=== PATIENT | male | born 2005 | race Two or more races ===

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

== ENCOUNTER 2024-09-20 09:16 | Inpatient (IN) | payer MEDICAID, OTHER ==
[~2024-09-20] VITALS: Ht 180.3 cm; Wt 76.0 kg
[2024-09-20 10:18] LABS: Basophils # (auto) 0 10 ^3/uL (0-0.2); Basophils % (auto) 0.3 % (0.0-2.0); Eosinophils # (auto) 0.1 10 ^3/uL (0-0.8); Eosinophils % (auto) 0.8 % (0.0-7.0); Hematocrit 47.8 % (41.0-53.0); Hemoglobin 16.2 g/dL (13.5-17.5); Lymphocytes # (auto) 1.5 10 ^3/uL (0.4-5.4); Lymphocytes % (auto) 22.8 % (10.0-50.0); Mean Corpuscular Hemoglobin 31.5 pg (28.0-32.0); Mean Corpuscular Hgb Conc. 33.9 g/dL (32.0-36.0); Mean Corpuscular Volume 92.9 fL (80.0-100.0); Monocytes # (auto) 0.5 10 ^3/uL (0-1.3); Monocytes % (auto) 7.3 % (0.0-12.0); Neutrophils # (auto) 4.5 10 ^3/uL (1.6-8.6); Neutrophils % (auto) 68.8 % (37.0-80.0); Nucleated Red Blood Cells % 0.1 %; Platelet Count (auto) 228 10^3/uL (140-450); Red Blood Cells 5.14 10^6/uL (4.5-5.90); Red Cell Distribution Width 13.7 % (11.8-14.3); White Blood Cell 6.5 10^3/uL (4.4-10.8)
[2024-09-20 10:21] LABS: Chloride 107 mmol/L (98-107); Potassium 3.6 mmol/L (3.5-5.1); Sodium 139 mmol/L (136-145)
[2024-09-20 10:22] LABS: Anion Gap 2 (5-15); Calcium 10.5 mg/dL (8.7-10.4); Carbon Dioxide 30 mmol/L (20-31)
[2024-09-20 10:27] LABS: Blood Urea Nitrogen 19 mg/dL (9-23); Glucose 94 mg/dL (74-106)
[2024-09-20 10:28] LABS: BUN/Creatinine Ratio 21.8 (10.0-20.0)
--- NOTE | 2024-09-20 11:11 | DVH ---
EXAM: CT HEAD WITHOUT CONTRAST HISTORY: syncope COMPARISON: None TECHNIQUE: Axial images of the head were obtained and reformatted in coronal and sagittal planes. All CT scans at this medical facility are performed using dose modulation techniques as appropriate t o a performed exam including the following: Automated exposure control was utilized; adjustment of th e MA and/or KV according to patient size; and use of iterative reconstruction technique. CT Dose: CTDI volume is 52.6 mGy. Dose-length product is 864 mGy*cm FINDINGS: There is no evidence of acute intracranial hemorrhage, mass, mass effect midline shift. There is no h ydrocephalus or extra-axial fluid collection. Grimes-white matter differentiation is maintained.. The visualized paranasal sinuses and mastoid air cells are clear. The calvarium is intact. IMPRESSION: 1. No acute intracranial process. HS:Y
--- NOTE | 2024-09-20 12:22 | ED.PDOC ---
History of Present Illness HPI Comments 19 y/o M presents s/p syncope, today. Patient endorses on having sudden syncopal episode after getting out of shower, this morning. Patient states on this being the 4th time it had occurred to him, this year. Patient denies any headache, weakness, nausea, vomiting, fever, chills, or other associated symptoms or modifiers at this time. Chief Complaint: Syncope Time Seen by MD: 10:00 Primary Care Provider: JOHN Reviewed Notes: Nurses Notes, Medications, Allergies Allergies: Coded Allergies: NO KNOWN ALLERGIES (Unverified , 03/08/16) Information Source: Patient Mode of Arrival: Ambulatory Severity: Moderate Timing: Hours Duration: Minutes Prehospital treatment: None Past Medical History PAST MEDICAL HISTORY: Denies Surgical History: Denies all surgeries Family History Family History: Unknown Social History Smoker: Non-Smoker Alcohol: Denies ETOH Use Drugs: Denies Drug Use Lives In: Home Constitutional: denies: chills, diaphoresis, fatigue, fever, malaise, sweats, weakness, others EENTM: denies: blurred vision, double vision, ear bleeding, ear discharge, ear drainage, ear pain, ear ringing, eye pain, eye redness, hearing loss, mouth pain, mouth swelling, nasal discharge, nose bleeding, nose congestion, nose pain, photophobia, tearing, throat pain, throat swelling, voice changes, others Respiratory: denies: cough, hemoptysis, orthopnea, SOB at rest, shortness of breath, SOB with excertion, stridor, wheezing, others Cardiovascular: reports: syncope; denies: chest pain, dizzy spells, diaphoresis, Dyspnea on exertion, edema, irregular heart beat, left arm pain, lightheadedness, palpitations, PND, others Gastrointestinal: denies: abdomen distended, abdominal pain, blood streaked bowels, constipated, diarrhea, dysphagia, difficulty swallowing, hematemesis, melena, nausea, poor appetite, poor fluid intake, rectal bleeding, rectal pain, vomiting, others Genitourinary: denies: burning, dysuria, flank pain, frequency, hematuria, incontinence, penile discharge, penile sore, pain, testicle pain, testicle swelling, urgency, others Neurological: denies: dizziness, fainting, headache, left sided numbness, left sided weakness, numbness, paresthesia, pre-existing deficit, right sided numbness, right sided weakness, seizure, speech problems, tingling, tremors, weakness, others Musculoskeletal: denies: back pain, gout, joint pain, joint swelling, muscle pain, muscle stiffness, neck pain, others Integumetry: denies: bruises, change in color, change in hair/nails, dryness, laceration, lesions, lumps, rash, wounds, others Allergic/Immunocompromised: denies: Difficulty Healing, Frequent Infections, Hives, Itching, others Hematologic/Lymphatic: denies: anemia, blood clots, easy bleeding, easy bruising, swollen glands, others Endocrine: denies: excessive hunger, excessive sweating, excessive thirst, excessive urination, flushing, intolerance to cold, intolerance to heat, unexplained weight gain, unexplained weight loss, others Psychiatric: denies: anxiety, bipolar disorder, depression, hopeless, panic disorder, schizophrenia, sleepless, suicidal, others All Other Systems: Reviewed and Negative Physical Exam General Appearance: Moderate Distress HEENT: Normal ENT Inspection, Pharynx Normal, TMs Normal Neck: Full Range of Motion, Non-Tender, Normal, Normal Inspection Respiratory: Chest Non-Tender, Lungs Clear, No Accessory Muscle Use, No Respiratory Distress, Normal Breath Sounds Cardiovascular: No Edema, No JVD, No Murmur, No Gallop, Normal Peripheral Pulses, Regular Rate/Rhythm Breast Exam: Deferred Gastrointestinal: No Organomegaly, Non Tender, No Pulsatile Mass, Normal Bowel Sounds, Soft Genitalia: Deferred Pelvic: Deferred Rectal: Deferred Extremities: No calf tenderness, Normal capillary refill, Normal inspection, Normal range of motion, Non-tender, No pedal edema Musculoskeletal : Apperance: Normal Neurologic: Alert, all terrain vehicle racer II-XII nml as Tested, No Motor Deficits, Normal Affect, Normal Mood, No Sensory Deficits Cerebellar Function: Normal Reflexes: Normal Skin: Dry, Normal Color, Warm Peripheral Pulses: 3+ Radial (R), 3+ Radial (L) Lymphatic: No Adenopathy Was a procedure done? Was a procedure done?: No Differential Dx Considerations may include: vasovagal response, dehydration, hypotension, electrolyte imbalance, viral syndrome X-Ray, Labs, Meds, VS Vital Signs Date Time Temp Pulse Resp B/P (MAP) Pulse Ox O2 Delivery O2 Flow Rate FiO2 09/20/24 10:08 98.7 81 17 117/95 (102) 100 98.7 09/20/24 10:08 81 17 100 Room Air 09/20/24 09:47 67 09/20/24 09:45 97.7 69 16 120/93 (102) 99 Lab Test 09/20/24 09:50 Range/Units White Blood Count 6.5 4.4-10.8 10^3/uL Red Blood Count 5.14 4.5-5.90 10^6/uL Hemoglobin 16.2 13.5-17.5 g/dL Hematocrit 47.8 41.0-53.0 % Mean Corpuscular Volume 92.9 80.0-100.0 fL Mean Corpuscular Hemoglobin 31.5 28.0-32.0 pg Mean Corpuscular Hemoglobin Concent 33.9 32.0-36.0 g/dL Red Cell Distribution Width 13.7 11.8-14.3 % Platelet Count 228 140-450 10^3/uL Mean Platelet Volume 8.4 6.9-10.8 fL Neutrophils (%) (Auto) 68.8 37.0-80.0 % Lymphocytes (%) (Auto) 22.8 10.0-50.0 % Monocytes (%) (Auto) 7.3 0.0-12.0 % Eosinophils (%) (Auto) 0.8 0.0-7.0 % Basophils (%) (Auto) 0.3 0.0-2.0 % Neutrophils # (Auto) 4.5 1.6-8.6 10 ^3/uL Lymphocytes # (Auto) 1.5 0.4-5.4 10 ^3/uL Monocytes # (Auto) 0.5 0-1.3 10 ^3/uL Eosinophils # (Auto) 0.1 0-0.8 10 ^3/uL Basophils # (Auto) 0 0-0.2 10 ^3/uL Nucleated Red Blood Cells 0.1 % Sodium Level 139 136-145 mmol/L Potassium Level 3.6 3.5-5.1 mmol/L Chloride Level 107 98-107 mmol/L Carbon Dioxide Level 30 20-31 mmol/L Anion Gap 2 L 5-15 Blood Urea Nitrogen 19 9-23 mg/dL Creatinine 0.87 0.700-1.30 mg/dL Glomerular Filtration Rate Calc 127 >90 mL/min BUN/Creatinine Ratio 21.8 H 10.0-20.0 Serum Glucose 94 74-106 mg/dL Calcium Level 10.5 H 8.7-10.4 mg/dL [address] [address] Ph: [phone] DIAGNOSTIC IMAGING Diagnostic Imaging Report : [id number] Signed PATIENT: BENITA VIGIL ACCT: [id number] UNIT: [id number] : 2005 LOC: ER ROOM / BED: / AGE / SEX: 19 / M ADM STATUS: REG ER SERVICE 1031 ORDERING PHYSICIAN: CELESTE BECKER MD PROCEDURE(s): HWOCT - HEAD WITHOUT CONTRAST REASON: syncope ORDER NUMBER(s): [id number], ACCESSION NUMBER(s): [id number] EXAM: CT HEAD WITHOUT CONTRAST HISTORY: syncope COMPARISON: None TECHNIQUE: Axial images of the head were obtained and reformatted in coronal and sagittal planes. All CT scans at this medical facility are performed using dose modulation techniques as appropriate to a performed exam including the following: Automated exposure control was utilized; adjustment of the MA and/or KV according to patient size; and use of iterative reconstruction technique. CT Dose: CTDI volume is 52.6 mGy. Dose-length product is 864 mGy*cm FINDINGS: There is no evidence of acute intracranial hemorrhage, mass, mass effect midline shift. There is no hydrocephalus or extra-axial fluid collection. Grimes-white matter differentiation is maintained.. The visualized paranasal sinuses and mastoid air cells are clear. The calvarium is intact. IMPRESSION: 1. No acute intracranial process. HS:Y ATED BY: REMI LOO MD DICTATED DATE/TIME: 09/20/241109 SIGNED BY: REMI LOO MD SIGNED DATE/TIME: 09/20/24 111 CC: Patient alert. Continues to have syncopal episodes. Had for this year. Vitals stable. Answering all questions. CT of the head reviewed does not show any acute process. Possibly will need echo. Possibly will need MRI. Reviewed his history. Explained to the patient. Continue cardiac monitoring. Time of 1ST Reevaluation: 10:30 Reevaluation 1ST: Unchanged Patient Education/Counseling: Diagnosis, Treatment Family Education/Counseling: No Family Present Departure 1 Departure Time of Disposition: 12:24 Impression: Primary Impression: Syncope Qualified Codes: R55 - Syncope and collapse Disposition: 09 ADMITTED INPATIENT Admit to: Med Surg Condition: Guarded Critical Care Note Critical Care Time?: Yes (45 min-critical care time only) Stability Stability form required: No Heart Score Heart Score: Heart Score Response (Comments) Value History N/A 0 EKG N/A 0 Age N/A 0 Risk Factors N/A 0 Troponin N/A 0 Total 0 I personally scribed for CELESTE BECKER MD ([email or web address]) on 09/20/24 at 12:22. Electronically submitted by Huseyin Leonardo ([email or web address]). I personally scribed for CELESTE BECKER MD ([email or web address]) on 09/20/24 at 16:49. Electronically submitted by Huseyin Leonardo ([email or web address]). CELESTE BECKER MD Sep 20, 2024 12:22
--- NOTE | 2024-09-20 13:00 | ECG ---
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
[2024-09-20] MEDS ORDERED: ACETAMINOPHEN 325 MG TAB PO PRN (16:00)
[2024-09-20] MEDS ORDERED: ONDANSETRON HCL 4 MG/2 ML VIAL IV PRN (16:00)
[2024-09-20] MEDS ORDERED: NITROGLYCERIN 0.4 MG SL TAB SL PRN (16:00)
[2024-09-20] MEDS ORDERED: MORPHINE SULFATE INJ 2 MG/ml SYRG IV PRN (16:00)
--- NOTE | 2024-09-20 16:57 | DVHHP2 ---
History of Present Illness Reason for Visit: Syncope History of Present Illness 19-year-old male presented to the ED status post syncope today. Patient states he had sudden onset syncope episode after getting out of the shower this morning, reports loss of consciousness, patient felt clammy, shaky and weak prior to syncopal episode. Patient states this is the 4th time this year it has happened to him. No injuries reported, patient has been able to ambulate s/p syncope without any issues, no dizziness reported at time of assessment, however it was noted on arrival patient still felt dizzy. Patient denies chest pain, headache, dizziness, diaphoresis, shortness of breath, abdominal pain, no nausea, vomiting, fever, or chills endorsed by the patient. Patient was admitted for further evaluation medical management. Past Medical History Syncope Past Surgical History Denies Family History Reviewed noncontributory to the management of this case Smoke: No ALCOHOL: none Drugs: None Lives: with Family Review of Systems Constitutional: No: Fever, Chills, Sweats, Weakness, Malaise, Other Eyes: No: Pain, Vision change, Conjunctivae inflammation, Eyelid inflammation, Other, Redness ENT: No: Ear pain, Ear discharge, Nose pain, Nose discharge, Nose congestion, Mouth pain, Mouth swelling, Throat pain, Throat swelling, Other Respiratory: No: Cough, Dry, Shortness of breath, SOB with excertion, Wheezing, Hemoptysis, Pleuritic Pain, Sputum, Wheezing, Other Cardiovascular: No: Chest Pain, Palpitations, Orthopnea, Paroxysmal Noc. Dyspnea, Edema, Lt Headedness, Other Gastrointestinal: No: Nausea, Vomiting, Abdominal Pain, Diarrhea, Constipation, Melena, Hematochezia, Other Genitourinary: No Dysuria, No Frequency, No Incontinence, No Hematuria, No Retention, No Other Musculoskeletal: No: other, neck pain, shoulder pain, arm pain, back pain, hand pain, leg pain, foot pain Skin: No: Rash, Lesions, Jaundice, Bruising, Other Neurological: No: Weakness, Numbness, Incoordination, Change in speech, Confusion, Seizures, Other Allergies: Coded Allergies: NO KNOWN ALLERGIES (Unverified , 03/08/16) Medications Current Medications Medications Dose Ordered Sig/Reji Route Start Time Stop Time Status Last Admin Dose Admin Acetaminophen 650 mg Q6HP PRN PO 09/20/24 16:00 Ondansetron HCl 4 mg Q4HP PRN IV 09/20/24 16:00 Nitroglycerin 0.4 mg Q5MINP PRN SL 09/20/24 16:00 Morphine Sulfate 2 mg Q30M PRN IV 09/20/24 16:00 Exam Vital Signs Vital Signs Date Time Temp Pulse Resp B/P (MAP) Pulse Ox O2 Delivery O2 Flow Rate FiO2 09/20/24 10:08 98.7 81 17 117/95 (102) 100 98.7 09/20/24 10:08 Room Air General Appearance: Alert, Oriented X3, Cooperative, No acute distress HEENT: Atraumatic, PERRLA, EOMI, Mucous membr. moist/pink Respiratory: Clear to auscultation, Normal air movement Cardiovascular: Regular rate, Normal S1, Normal S2, No murmurs Abdominal: Normal bowel sounds, Soft, No tenderness, No hepatospenomegaly Extremities: No clubbing, No cyanosis, No edema, Normal pulses, No tenderness/swelling Skin: No rashes, No breakdown, No significant lesion Neuro: Normal gait, Normal speech, Strength at 5/5 X4 ext, Sensation intact, Cranial nerves 3-12 NL Psych/Mental Status: Mental status NL, Mood NL Labs/Xrays Labs, imaging and ED notes reviewed Labs Test 09/20/24 09:50 Range/Units White Blood Count 6.5 4.4-10.8 10^3/uL Red Blood Count 5.14 4.5-5.90 10^6/uL Hemoglobin 16.2 13.5-17.5 g/dL Hematocrit 47.8 41.0-53.0 % Mean Corpuscular Volume 92.9 80.0-100.0 fL Mean Corpuscular Hemoglobin 31.5 28.0-32.0 pg Mean Corpuscular Hemoglobin Concent 33.9 32.0-36.0 g/dL Red Cell Distribution Width 13.7 11.8-14.3 % Platelet Count 228 140-450 10^3/uL Mean Platelet Volume 8.4 6.9-10.8 fL Neutrophils (%) (Auto) 68.8 37.0-80.0 % Lymphocytes (%) (Auto) 22.8 10.0-50.0 % Monocytes (%) (Auto) 7.3 0.0-12.0 % Eosinophils (%) (Auto) 0.8 0.0-7.0 % Basophils (%) (Auto) 0.3 0.0-2.0 % Neutrophils # (Auto) 4.5 1.6-8.6 10 ^3/uL Lymphocytes # (Auto) 1.5 0.4-5.4 10 ^3/uL Monocytes # (Auto) 0.5 0-1.3 10 ^3/uL Eosinophils # (Auto) 0.1 0-0.8 10 ^3/uL Basophils # (Auto) 0 0-0.2 10 ^3/uL Nucleated Red Blood Cells 0.1 % Sodium Level 139 136-145 mmol/L Potassium Level 3.6 3.5-5.1 mmol/L Chloride Level 107 98-107 mmol/L Carbon Dioxide Level 30 20-31 mmol/L Anion Gap 2 L 5-15 Blood Urea Nitrogen 19 9-23 mg/dL Creatinine 0.87 0.700-1.30 mg/dL Glomerular Filtration Rate Calc 127 >90 mL/min BUN/Creatinine Ratio 21.8 H 10.0-20.0 Serum Glucose 94 74-106 mg/dL Calcium Level 10.5 H 8.7-10.4 mg/dL Assessment/Plan Assessment/Plan Syncope Admit to telemetry Consult cardiology Ordered echo EKG sinus rhythm, showed some ST changes suggestive of pericarditis Chest x-ray pending CT head negative for acute findings, consider neurology consult FEN/PPX GI and VTE prophylaxis not indicated Regular diet Plan discussed with: Patient My Orders Orders - LEIGH ORDONEZ Procedure Category Date Status Time Admit ADMIT 09/20/24 Transmitted 15:56 Code Status CODE 09/20/24 Transmitted 15:56 Vital Signs [facility] 09/20/24 In Process 15:56 Review Orders With VERONIKA 09/20/24 In Process Adm. 15:56 Maintain Bed Rest VERONIKA 09/20/24 In Process 15:56 Up Ad Mari VERONIKA 09/20/24 In Process 15:56 Regular Diet DIET 09/20/24 Transmitted Dinner Acetaminophen Tablet PHA 09/20/24 In Process (Tylenol Tablet) 16:00 Notify Of Changes [facility] 09/20/24 In Process From Base 15:56 Advance Directive VERONIKA 09/20/24 In Process 15:56 Basic Metabolic Panel LAB 09/21/24 Verified 04:00 Complete Blood Count LAB 09/21/24 Verified 04:00 Patient Condition ORDERS 09/20/24 Transmitted 15:56 Allergies [facility] 09/20/24 In Process 15:56 Ondansetron Hcl [facility] 09/20/24 In Process (Zofran) 16:00 Nitroglycerin [facility] 09/20/24 In Process Sublingual (Ntrostat 16:00 Morphine Sulfate PH[facility] 09/20/24 In Process Injection 16:00 Stat Ekg For Chest [facility] 09/20/24 In Process Pain 15:56 Notify Md Of Changes [facility] 09/20/24 In Process From Base 15:56 Credit Authorizer For [facility] 09/20/24 In Process 24 Hours 15:56 Emergency Dysrhythmia [facility] 09/20/24 In Process Protocol 15:56 Rhythm Strips Once [facility] 09/20/24 In Process Every Shift 15:56 Oxygen By Nasal RT 09/20/24 Transmitted Cannula 15:56 * Cardiology Consult CONS 09/20/24 Transmitted 15:56 Date of Service: Sep 20, 2024 Billing Provider: LEIGH ORDONEZ Common Visit Codes: [id number] INP/OBS CARE (HIGH) LEIGH ORDONEZ Sep 20, 2024 16:57
[2024-09-20 17:57] VITALS: PULSE 71; RESP 19; O2SAT 97
--- NOTE | 2024-09-20 18:10 | DVH ---
EXAM: XY CHEST PORTABLE CLINICAL HISTORY: Syncope workup TECHNIQUE: Single AP view of the chest WID: COMPARISON: None FINDINGS: Lines and tubes: None Chest: The heart size and pulmonary vasculature is within normal limits. No pleural effusion, pneumothorax, or consolidation. The osseous structures are grossly intact. IMPRESSION: No acute cardiopulmonary abnormality.
--- NOTE | 2024-09-20 18:17 | DVHINCON2 ---
Date Seen: Sep 20, 2024 Referring Physician ERIN Maldonado Reason for Consultation Syncope History of Present Illness This is a pleasant 19-year-old male who presented to the emergency room with a chief complaint of syncopal event today. The patient reports he took a hot shower and once getting out of the shower developing dizziness, mild SOB, feeling laryngospasm, and a subsequent syncopal event. States his girlfriend found him pale and his lips to be cyanotic. Upon regaining consciousness he drank electrolytes and ate a banana. He is concern as he has had similar events in the past including a syncopal event when working out earlier this year and an event of dizziness approximately three months ago. Denies chest pain, shortness of breath, or palpitations. Denies a history of congenital disease. Denies a family history for cardiovascular disease. Denies the use of illicit drugs, tobacco, or alcohol. A 12 lead electrocardiogram revealed a sinus rhythm suggestive of acute pericarditis given ST-elevation to multiple leads. There are no troponin levels at this time. Significant medical history includes dyslipidemia managed by diet and exercise and right meniscus surgery four months ago. Past Medical History Past medical history reviewed. No other significant than mentioned above. Past Surgical History See HPI. Family History See HPI. Social History See HPI. Allergies: Coded Allergies: NO KNOWN ALLERGIES (Unverified , 03/08/16) Home Meds Denies any home medications. Current Medications Current Medications Medications (Trade) Dose Ordered Sig/Reji Route PRN Reason Start Time Stop Time Status Last Admin Acetaminophen (Tylenol Tablet) 650 mg Q6HP PRN PO PAIN SCALE 1-3 OR TEMP>100.4 09/20/24 16:00 Ondansetron HCl (Zofran) 4 mg Q4HP PRN IV NAUSEA / VOMITING 09/20/24 16:00 Nitroglycerin (Ntrostat Sublingual) 0.4 mg Q5MINP PRN SL FOR CHEST PAIN 09/20/24 16:00 Morphine Sulfate 2 mg Q30M PRN IV FOR CHEST PAIN 09/20/24 16:00 Review of Systems Constitutional: No symptom reported Ears, Nose, & Throat: No symptom reported Eyes: No symptom reported Neurological: Dizziness, syncope Pulmonary/Respiratory: No symptom reported Cardiovascular: No symptom reported Gastrointestinal: No symptom reported Genitourinary: No symptom reported Musculoskeletal: No symptom reported Skin: No symptom reported Psychiatric: No symptom reported Endocrine: No symptom reported Hemotologic/Lymphatic: No symptom reported Vital Signs Vital Signs Date Time Temp Pulse Resp B/P (MAP) Pulse Ox O2 Delivery O2 Flow Rate FiO2 09/20/24 17:45 98.7 65 17 117/58 (77) 100 98.7 09/20/24 10:08 Room Air Physical Exam General Appearance: Cooperative. Well developed. Well nourished. In no acute d istress Head Exam: Normal inspection Neck Exam: Normal inspection. Non-tender. Normal alignment Pulmonary/Respiratory: Chest non-tender. Clear bilateral breath sounds Cardiovascular/Chest: Regular rate and rhythm. S1, S2. ST-elevation to multiple leads. No murmurs. No JVD. Peripheral Pulses: 2+ Radial (R). 2+ Radial (L). 2+ Pedal (R). 2+ Pedal (L) Abdominal Exam: Normal bowel sounds. Soft. Nontender. No hepatospenomegaly. No masses Ankle Exam: Negative ankle edema Lower extremities: Negative lower extremity edema Neuro/Mental Status: A&O x4. Coherent Thoughts/Psych: Normal thought pattern. Appropriate mood and affect. Good judgement and insight Appearance: In no acute distress Skin Exam: Normal inspection. Normal color. Warm. Dry Labs/Diagnostic Data Labs Test 09/20/24 09:50 Range/Units White Blood Count 6.5 4.4-10.8 10^3/uL Red Blood Count 5.14 4.5-5.90 10^6/uL Hemoglobin 16.2 13.5-17.5 g/dL Hematocrit 47.8 41.0-53.0 % Mean Corpuscular Volume 92.9 80.0-100.0 fL Mean Corpuscular Hemoglobin 31.5 28.0-32.0 pg Mean Corpuscular Hemoglobin Concent 33.9 32.0-36.0 g/dL Red Cell Distribution Width 13.7 11.8-14.3 % Platelet Count 228 140-450 10^3/uL Mean Platelet Volume 8.4 6.9-10.8 fL Neutrophils (%) (Auto) 68.8 37.0-80.0 % Lymphocytes (%) (Auto) 22.8 10.0-50.0 % Monocytes (%) (Auto) 7.3 0.0-12.0 % Eosinophils (%) (Auto) 0.8 0.0-7.0 % Basophils (%) (Auto) 0.3 0.0-2.0 % Neutrophils # (Auto) 4.5 1.6-8.6 10 ^3/uL Lymphocytes # (Auto) 1.5 0.4-5.4 10 ^3/uL Monocytes # (Auto) 0.5 0-1.3 10 ^3/uL Eosinophils # (Auto) 0.1 0-0.8 10 ^3/uL Basophils # (Auto) 0 0-0.2 10 ^3/uL Nucleated Red Blood Cells 0.1 % Sodium Level 139 136-145 mmol/L Potassium Level 3.6 3.5-5.1 mmol/L Chloride Level 107 98-107 mmol/L Carbon Dioxide Level 30 20-31 mmol/L Anion Gap 2 L 5-15 Blood Urea Nitrogen 19 9-23 mg/dL Creatinine 0.87 0.700-1.30 mg/dL Glomerular Filtration Rate Calc 127 >90 mL/min BUN/Creatinine Ratio 21.8 H 10.0-20.0 Serum Glucose 94 74-106 mg/dL Calcium Level 10.5 H 8.7-10.4 mg/dL Assessment Possible myopericarditis Possible vasovagal event Rule out structural heart disease HX of dyslipidemia Plan/Recommendation (Dr. Gastelum) The patient presents with complaints of dizziness and a subsequent syncopal event. He underwent a 12-lead electrocardiogram revealing a sinus rhythm with ST elevation to multiple leads. He is chest pain-free at this time. Differential diagnosis include myopericarditis versus vasovagal event. Given multiple events of syncope and dizziness, we will continue further cardiac evaluation with a transthoracic echocardiogram to rule out structural heart disease. In the meantime obtain ESR, CRP, troponin, UDS, and TSH levels. Also obtain rapid influenza and COVID-19 swabs. Monitor ECG changes closely and notify. Repeat ECG in the a.m. Thank you for allowing us to participate in this patient's care. Please call if you have any questions or concerns. This medical document was created using an electronic medical record system with voice recognition software and computerized dictation system. Although this document has been carefully reviewed, there might still be some phonetic and typographical errors. Occasional wrong-word or ``sound-alike substitutions may have occurred due to the inherent limitations of voice recognition software. These areas are purely typographical due to imperfections of the software programs and do not reflect any compromise in the patient's medical care. Pl ease read the chart carefully and recognize, using context, where these substitutions have occurred. Plan discussed with: Patient, Other Date of Service: Sep 20, 2024 Billing Provider: AMITA GASTELUM MD Cardiology Common Codes: [id number] INP/OBS CARE (High) FLORENTINO MORENO [employer] Sep 20, 2024 18:17
[2024-09-20 19:37] LABS: Erythrocyte Sedimentation Rate 7 mm/hr (0-20)
[2024-09-20 20:13] LABS: Magnesium 2.2 mg/dL (1.6-2.6)
[2024-09-20 20:14] LABS: CRP High Sensitivity 0.78 mg/dL (<1.0)
[2024-09-20 20:19] VITALS: PULSE 85; RESP 16; O2SAT 98
[2024-09-21] VITALS (7 sets, daily range): BP systolic 105–120; BP diastolic 60–67; PULSE 18–70; RESP 14–18; TEMP 97.4–98.3; O2SAT 95–100
[2024-09-21 06:58] LABS: Basophils # (auto) 0 10 ^3/uL (0-0.2); Basophils % (auto) 0.3 % (0.0-2.0); Eosinophils # (auto) 0.1 10 ^3/uL (0-0.8); Eosinophils % (auto) 1.6 % (0.0-7.0); Hematocrit 41.3 % (41.0-53.0); Lymphocytes # (auto) 2.1 10 ^3/uL (0.4-5.4); Lymphocytes % (auto) 46.8 % (10.0-50.0); Mean Corpuscular Hemoglobin 31.4 pg (28.0-32.0); Mean Corpuscular Hgb Conc. 33.9 g/dL (32.0-36.0); Mean Corpuscular Volume 92.4 fL (80.0-100.0); Monocytes # (auto) 0.5 10 ^3/uL (0-1.3); Monocytes % (auto) 11.8 % (0.0-12.0); Neutrophils # (auto) 1.7 10 ^3/uL (1.6-8.6); Neutrophils % (auto) 39.5 % (37.0-80.0); Nucleated Red Blood Cells % 0.2 %; Platelet Count (auto) 198 10^3/uL (140-450); Red Blood Cells 4.47 10^6/uL (4.5-5.90); Red Cell Distribution Width 13.9 % (11.8-14.3); White Blood Cell 4.4 10^3/uL (4.4-10.8)
[2024-09-21 07:10] LABS: Anion Gap 6 (5-15); Carbon Dioxide 26 mmol/L (20-31); Chloride 108 mmol/L (98-107); Sodium 140 mmol/L (136-145)
[2024-09-21 07:11] LABS: Calcium 9.9 mg/dL (8.7-10.4)
[2024-09-21 07:16] LABS: Blood Urea Nitrogen 15 mg/dL (9-23); Glucose 88 mg/dL (74-106)
[2024-09-21 09:41] LABS: COVID19 ANTIGEN SOFIA FIA NEGATIVE (NEGATIVE); Rapid Influenza A Negative (Negative); Rapid Influenza B Negative (Negative)
[2024-09-21 12:39] LABS: Urine Bacteria None Seen /hpf (None Seen)
--- NOTE | 2024-09-21 12:41 | DVHPN2 ---
Reviewed: Care Plan, H&P, Labs, Medications, Previous Orders, Radiology Changes from previous H/P or p: No Changes General: Per HPI Eyes: No Pain, No Vision change, No Conjunctivae inflammation, No Eyelid inflammation, No Other, No Redness ENT: No Ear pain, No Ear discharge, No Nose pain, No Nose discharge, No Nose congestion, No Mouth pain, No Mouth swelling, No Throat pain, No Throat swelling, No Other Cardiovascular: No Chest Pain, No Palpitations, No Orthopnea, No Paroxysmal Noc. Dyspnea, No Edema, No Lt Headedness, No Other Respiratory: No Cough, No Dry, No Shortness of breath, No SOB with excertion, No Wheezing, No Hemoptysis, No Pleuritic Pain, No Sputum, No Other Gastrointestinal: No Nausea, No Vomiting, No Abdominal Pain, No Diarrhea, No Constipation, No Melena, No Hematochezia, No Other Genitourinary: No Dysuria, No Frequency, No Incontinence, No Hematuria, No Retention, No Other Musculoskeletal: No other, No neck pain, No shoulder pain, No arm pain, No back pain, No hand pain, No leg pain, No foot pain Skin: No Rash, No Lesions, No Jaundice, No Bruising, No Other Objective Vitals Vital Signs Date Time Temp Pulse Resp B/P (MAP) Pulse Ox O2 Delivery O2 Flow Rate FiO2 09/21/24 08:53 97.4 49 14 105/60 (75) 100 97.4 09/21/24 08:00 Room Air* 0 21 Intake/Output Intake and Output 09/21/24 07:00 Intake Total 240 ml Balance 240 ml Intake Oral 240 ml General Appearance: Alert, Oriented X3 Cardiovascular: Regular rate, Normal S1, Normal S2 Abdomen: Normal bowel sounds Medications Current Medications Medications Dose Ordered Sig/Reji Route Start Time Stop Time Status Last Admin Dose Admin Acetaminophen 650 mg Q6HP PRN PO 09/20/24 16:00 Ondansetron HCl 4 mg Q4HP PRN IV 09/20/24 16:00 Nitroglycerin 0.4 mg Q5MINP PRN SL 09/20/24 16:00 Morphine Sulfate 2 mg Q30M PRN IV 09/20/24 16:00 Laboratory Results Laboratory Tests 09/21/24 06:07 Chemistry Test 09/21/24 06:07 Calcium Level 9.9 mg/dL (8.7-10.4) Urinalysis Test 09/21/24 12:00 Urine Color Pending Urine Clarity Pending Urine pH Pending Urine Specific [place] Pending Urine Protein Pending Urine Ketones Pending Urine Blood Pending Urine Nitrite Pending Urine Bilirubin Pending Urine Urobilinogen Pending Urine Leukocyte Esterase Pending Urine RBC Pending Urine WBC Pending Urine Squamous Epithelial Cells Pending Urine Bacteria Pending Urine Glucose Pending Labs and/or images reviewed: Labs reviewed by me, Image(s) reviewed by me Assessment/Plan Assessment/Plan Syncope Possible myopericarditis Possible vasovagal event Rule out structural heart disease HX of dyslipidemia Admit to telemetry Consult cardiology Ordered echo EKG sinus rhythm, showed some ST changes suggestive of pericarditis Chest x-ray pending CT head negative for acute findings, consider neurology consult Plan discussed with: Patient Date of Service: Sep 21, 2024 Billing Provider: JOHNNY CURTIS DO Common Visit Codes: [id number] INP/OBS CARE(HIGH) JOHNNY CURTIS DO Sep 21, 2024 12:41
[2024-09-21 12:50] LABS: Urine Blood Negative /uL (Negative); Urine Clarity Clear (Clear); Urine Color Light-Yellow (Yellow); Urine Protein, UAD Negative (Negative); Urine Specific Gravity 1.027 (1.001-1.035); Urine Urobilinogen Normal (Negative); Urine WBC <1 /hpf (0 - 3)
[2024-09-21 12:55] LABS: Amphetamine Screen, Urine Neg (NEGATIVE)
[2024-09-21 12:56] LABS: Barbiturate Scree,Urine Neg (NEGATIVE); Benzodiazephine Screen, Urine Neg (NEGATIVE); Cannabinoid Screen, Urine Neg (NEGATIVE); Cocaine Screen, Urine Neg (NEGATIVE); Opiate Scree,Urine Neg (NEGATIVE); Phencyclidine Screen, Urine Neg (NEGATIVE)
--- NOTE | 2024-09-21 13:59 | DVHSR ---
APPROVED REPORT EXAM: Two-dimensional and M-mode echocardiogram with Doppler and color Doppler. Blood Pressure: 109/60 mmHg INDICATION Syncope RISK FACTORS Height: 5'11", Weight: 165 DIMENSIONS LVDd4.7 (3.8-5.7cm)LA (2D)3.5 (1.9-4.0cm)Aortic Root2.9 (2.0-3.7cm) LVDs2.9 (2.5-4.0cm)LA (MM) (1.9-4.0cm)Aortic Cusp Exc1.9 (1.5-2.0cm) EF (%) 68.0 (55-70%)Rt. Atrium3.7 (1.9-4.0cm)Asc. Aorta2.5 cm IVSd1.1 (0.7-1.1cm)RV (D)3.9 (1.8-2.4cm) PWd1.0 (0.7-1.1cm) Mitral Valve MitralMitral Stenosis E wave0.66m/sMV Mean GR.mmHg A wave0.33m/sMV Peak GR.mmHg E/A ratio2.02D MVAcm2 DECEL [id number] 1/2 Timems Aortic Valve Aortic ValveAortic Stenosis V10.92m/Sharron Mean GR.3mmHg V21.06m/Sharron Peak GR.5mmHg LVOT Diameter2.3 (1.8-2.4cm)Doppler AVA3.60cm2 Pulmonic Valve V20.88m/s Tricuspid Valve TR Velocity2.13m/s [id number] Conclusion Normal left ventricular size and dimension. Normal left ventricular systolic function estimated ejec tion fraction 55%. Normal diastolic function. Normal right ventricular size and dimension. Normal right ventricular systolic function. Normal biatrial size and dimension. Normal aortic valve structure and function. Normal mitral Valve structure and function Normal tricuspid valve structure and function. The pulmonary valve grossly normal. No pericardial effusion.
--- NOTE | 2024-09-21 15:09 | DVHPNRES ---
Progress Note Date Seen: Sep 21, 2024 Resident Creating Document: JIMENA KOCH RESIDENT Medical Necessity Reason Pt with a Central, PICC or Fol: No Subjective Review of Systems Stefan Caldera is a 19-year-old male patient who presents to ED with chief complaint of fall secondary to loss of consciousness with prodromes of dizziness, diaphoresis and obscuring vision. Girlfriend found him pale and with cyanotic lips. Patient believes this was triggered secondary to drastic temperature change (from hot shower to cold environment). Patient also reports previous episode a couple of months ago after doing excessive sports and being dehydrated. During his ED stay keep presented EKG compatible with acute pericarditis, with negative inflammatory markers and negative troponin. Denies palpitation, fever, chills, chest pain, dyspnea, nausea, vomiting, diarrhea, sick contacts, recent travel, dysuria and motor or sensory deficits. Past medical history: Dyslipidemia, syncopal episode interpreted as orthostatic after excessive exercise. Surgical history: Right meniscus surgery Family history: Noncontributory Social history: Lives with family. Denies current tobacco, alcohol and other drug abuse Allergies: Denies Home medication: This is a pleasant 19-year-old male who presented to the emergency room with a chief complaint of syncopal event today. The patient reports he took a hot shower and once getting out of the shower developing dizziness, mild SOB, feeling laryngospasm, and a subsequent syncopal event. States his girlfriend found him pale and his lips to be cyanotic. Upon regaining consciousness he drank electrolytes and ate a banana. He is concern as he has had similar events in the past including a syncopal event when working out earlier this year and an event of dizziness approximately three months ago. Denies chest pain, shortness of breath, or palpitations. Denies a history of congenital disease. Denies a family history for cardiovascular disease. Denies the use of illicit drugs, tobacco, or alcohol. A 12 lead electrocardiogram revealed a sinus rhythm suggestive of acute pericarditis given ST-elevation to multiple leads. There are no troponin levels at this time. Significant medical history includes dyslipidemia managed by diet and exercise and right meniscus surgery four months ago. Assessment Possible myopericarditis Possible vasovagal event Rule out structural heart disease HX of dyslipidemia Plan/Recommendation (Dr. Gastelum) The patient presents with complaints of dizziness and a subsequent syncopal event. He underwent a 12-lead electrocardiogram revealing a sinus rhythm with ST elevation to multiple leads. He is chest pain-free at this time. Differential diagnosis include myopericarditis versus vasovagal event. Given multiple events of syncope and dizziness, we will continue further cardiac evaluation with a transthoracic echocardiogram to rule out structural heart disease. In the meantime obtain ESR, CRP, troponin, UDS, and TSH levels. Also obtain rapid influenza and COVID-19 swabs. Monitor ECG changes closely and notify. Repeat ECG in the a.m. Thank you for allowing us to participate in this patient's care. Please call if you have any questions or concerns. Objective vital signs Vital Sign Date Time Temp Pulse Resp B/P (MAP) Pulse Ox O2 Delivery O2 Flow Rate FiO2 09/21/24 13:00 97.5 69 16 117/66 (83) 95 97.5 09/21/24 08:00 Room Air* 0 21 Total Intake and Output 09/20/24 09/20/24 09/21/24 15:00 23:00 07:00 Intake Total 240 ml Balance 240 ml medications Current Medications Medications Dose Ordered Sig/Reji Route Start Time Stop Time Status Last Admin Dose Admin Acetaminophen 650 mg Q6HP PRN PO 09/20/24 16:00 Ondansetron HCl 4 mg Q4HP PRN IV 09/20/24 16:00 Nitroglycerin 0.4 mg Q5MINP PRN SL 09/20/24 16:00 Morphine Sulfate 2 mg Q30M PRN IV 09/20/24 16:00 Mupirocin 1 applic BID EACHNOSTRI 09/21/24 22:00 09/26/24 21:59 Examination Patient lying in bed, in no acute distress General: Lucid, afebrile, mucosae are moist Cardiovascular: Normal S1 and S2. No murmurs, gallops or rubs Respiratory: Normal ventilation mechanics. Clear lung sounds on auscultation Abdomen: Soft, nontender, no organomegaly, normal bowel sounds MSK/skin: Mobilizes 4 limbs. Skin is dry and warm Neurological: Oriented in 3 spheres. No motor no sensitive deficits. Pupils are isocoric and reactive laboratory and microbiology Laboratory Tests 09/21/24 06:07 Test 09/21/24 06:07 Range/Units Serum Glucose 88 74-106 mg/dL Microbiology Date/Time Source Procedure Growth Status 09/21/24 08:05 Nose MRSA Screen - Final Methicillin Resistant S.aureus Complete Problem List/Assessment/Plan Problem List/Assessment/Plan Assessment Acute pericarditis Possible vasovagal event Ruled out structural heart disease Plan/Recommendation Echocardiogram: LVEF 55%, normal diastolic function, rest of echocardiogram within normal limits Started patient on colchicine due to EKG findings compatible with acute pericarditis Rest of laboratory workup within normal limits. Head CT within normal limits, no acute bleeding. Discussed plan with Dr. Gastelum, patient and nurses: We will indicate colchicine for discharge for EKG findings compatible with acute pericarditis. Echocardiogram within normal limits. Probable cause of syncope is due to vasovagal event (drastic change in temperature), gave her advice to avoid triggering factors. No further cardiological workup needed as an inpatient. We will sign off from case. Please reconsult if needed, thank you. Plan discussed with: Patient, Other (Nurses) Visit Coding Cardiology RES Date of Service: Sep 21, 2024 Billing Provider: AMITA GASTELUM MD Cardiology Common Codes: 91561-YOF/OBS SAME DATE (High), [id number] CARE- EACH +30MIN JIMENA KOCH RESIDENT Sep 21, 2024 15:09
[2024-09-21] MEDS: PANTOPRAZOLE 40 MG TAB PO ONE (15:55)
[2024-09-21] MEDS: COLCHICINE 0.6 MG CAP PO ONE (15:55)
[2024-09-21] MEDS: COLCHICINE 0.6 MG CAP PO SCH (21:10)
[2024-09-21] MEDS: MUPIROCIN 2% OINT 15gm or 22gm FOR MRSA NARES EACHNOSTRI SCH (22:00)
[2024-09-22 00:53] VITALS: PULSE 45
[2024-09-22 01:00] VITALS: BP 110/50; PULSE 51; RESP 17; TEMP 97.7; O2SAT 100
[2024-09-22 05:00] VITALS: BP 115/65; PULSE 68; RESP 18; TEMP 97.8; O2SAT 97
[2024-09-22] MEDS: PANTOPRAZOLE 40 MG TAB PO SCH (05:05)
[2024-09-22 07:22] VITALS: BP 108/61; PULSE 53; RESP 17; TEMP 98.1; O2SAT 98
[2024-09-22 08:00] VITALS: PULSE 48
[2024-09-22 11:47] VITALS: BP 113/64; PULSE 59; RESP 16; TEMP 98.3; O2SAT 96
--- NOTE | 2024-09-22 14:23 | DVHDS2 ---
Discharge Summary Date of Admission Sep 20, 2024 at 15:56 Date of Discharge: Sep 22, 2024 Labs/Diagnostic Data: Laboratory Results Test 09/21/24 12:00 09/21/24 08:05 09/21/24 06:07 09/20/24 09:50 Urine Color Light-yellow (Yellow) Urine Clarity Clear (Clear) Urine pH 6.0 (5.0-9.0) Urine Specific [place] 1.027 (1.001-1.035) Urine Protein Negative (Negative) Urine Ketones Negative (Negative) Urine Blood Negative /uL (Negative) Urine Nitrite Negative (Negative) Urine Bilirubin Negative (Negative) Urine Urobilinogen Normal mg/dL (Negative) Urine Leukocyte Esterase Negative /uL (Negative) Urine RBC <1 /hpf (0 - 3) Urine WBC <1 /hpf (0 - 3) Urine Squamous Epithelial Cells Few /hpf (<5) Urine Bacteria None seen /hpf (None Seen) Urine Glucose Normal mg/dL (Normal) Urine Opiates Screen Neg (NEGATIVE) Urine Fentanyl Screen Neg (NEGATIVE) Urine Barbiturates Screen Neg (NEGATIVE) Urine Phencyclidine Screen Neg (NEGATIVE) Urine Amphetamines Screen Neg (NEGATIVE) Urine Benzodiazepines Screen Neg (NEGATIVE) Urine Cocaine Screen Neg (NEGATIVE) Urine Cannabinoids Screen Neg (NEGATIVE) Influenza Type A Antigen Negative (Negative) Influenza Type B Antigen Negative (Negative) SARS-CoV-2 Antigen (Rapid) Negative (NEGATIVE) White Blood Count 4.4 10^3/uL (4.4-10.8) Red Blood Count 4.47 10^6/uL (4.5-5.90) Hemoglobin 14.0 g/dL (13.5-17.5) Hematocrit 41.3 % (41.0-53.0) Mean Corpuscular Volume 92.4 fL (80.0-100.0) Mean Corpuscular Hemoglobin 31.4 pg (28.0-32.0) Mean Corpuscular Hemoglobin Concent 33.9 g/dL (32.0-36.0) Red Cell Distribution Width 13.9 % (11.8-14.3) Platelet Count 198 10^3/uL (140-450) Mean Platelet Volume 8.6 fL (6.9-10.8) Neutrophils (%) (Auto) 39.5 % (37.0-80.0) Lymphocytes (%) (Auto) 46.8 % (10.0-50.0) Monocytes (%) (Auto) 11.8 % (0.0-12.0) Eosinophils (%) (Auto) 1.6 % (0.0-7.0) Basophils (%) (Auto) 0.3 % (0.0-2.0) Neutrophils # (Auto) 1.7 10 ^3/uL (1.6-8.6) Lymphocytes # (Auto) 2.1 10 ^3/uL (0.4-5.4) Monocytes # (Auto) 0.5 10 ^3/uL (0-1.3) Eosinophils # (Auto) 0.1 10 ^3/uL (0-0.8) Basophils # (Auto) 0 10 ^3/uL (0-0.2) Nucleated Red Blood Cells 0.2 % Sodium Level 140 mmol/L (136-145) Potassium Level 4.0 mmol/L (3.5-5.1) Chloride Level 108 mmol/L (98-107) Carbon Dioxide Level 26 mmol/L (20-31) Anion Gap 6 (5-15) Blood Urea Nitrogen 15 mg/dL (9-23) Creatinine 0.75 mg/dL (0.700-1.30) Glomerular Filtration Rate Calc 132 mL/min (>90) BUN/Creatinine Ratio 20.0 (10.0-20.0) Serum Glucose 88 mg/dL (74-106) Calcium Level 9.9 mg/dL (8.7-10.4) Troponin I High Sensitivity < 3 ng/L (</=54) Erythrocyte Sedimentation Rate 7 mm/hr (0-20) Hemoglobin A1c 5.3 % A1C (<5.7) Magnesium Level 2.2 mg/dL (1.6-2.6) C-Reactive Protein High Sensitivity 0.78 mg/dL (<1.0) B-Type Natriuretic Peptide 11.20 pg/mL (0-100) Triglycerides Level 54 mg/dL (< 150) Cholesterol Level 128 mg/dL (< 200) LDL Cholesterol 59 mg/dL (< 100) HDL Cholesterol 60 mg/dL (40-59) Thyroid Stimulating Hormone (TSH) 1.78 uIU/mL (0.55-4.78) Other Laboratory Tests 09/21/24 06:07 Brief Hx & Hospital Course: 19-year-old male presented to the ED status post syncope today. Patient states he had sudden onset syncope episode after getting out of the shower this morning, reports loss of consciousness, patient felt clammy, shaky and weak prior to syncopal episode. Patient states this is the 4th time this year it has happened to him. No injuries reported, patient has been able to ambulate s/p syncope without any issues, no dizziness reported at time of assessment, however it was noted on arrival patient still felt dizzy. Patient denies chest pain, headache, dizziness, diaphoresis, shortness of breath, abdominal pain, no nausea, vomiting, fever, or chills endorsed by the patient. Patient was admitted for further evaluation medical management. Possible myopericarditis Possible vasovagal event Rule out structural heart disease HX of dyslipidemia Admit to telemetry Consult cardiology Ordered echo EKG sinus rhythm, showed some ST changes suggestive of pericarditis Chest x-ray pending CT head negative for acute findings, consider neurology consult discharged to home with self care. Condition at Discharge: Stable Final Diagnosis/Problems List see above Discharge Disposition: Home Discharge Instruct/Medications Diet: Cardiac 2g Na,low cholest Activity: No Restrictions, As Tolerated Discharge Statement: "Patient was advised to return to the ER or call 911 if any headaches, dizziness, shortness of breath, chest pain, abdominal pain, bleeding, fevers, or worsening of medical condition. Patient was counseled about treatment plan, medications, possible side effects, patientverbalized understanding. All questions were answered to the best of my ability. This discharge took greater then 30 minutes in planning, reviewing documentation, counseling the patient, and discussing with other team members." ASSESSMENT ASSESSMENT Assessment JOHNNY CURTIS DO Sep 22, 2024 14:23
== END 2024-09-22 16:30 | disposition home or self-care (01) | DRG 207 ==
LOC: ER 09:16 → TELE 15:56 → TELE-WESTW 09-21 03:30 → TELE-EAST 09-22 06:04
PROVIDERS: ADMIT Registered Nurse General Practice; ATTEND Internal Medicine
DX: I31.9 Disease of pericardium, unspecified (principal); E78.5 Hyperlipidemia, unspecified; R23.0 Cyanosis; J38.5 Laryngeal spasm; Z53.29 Procedure and treatment not carried out because of patient's decision for other reasons
CPT/HCPCS: 36415; 70450; 71045; 80048; 80061; 80307; 81001; 83036; 83735; 83880; 84443; 84484; 85025; 85652; 86141; 87081; 87426; 87804; 93005; 93306; 99291; G0378